=== PATIENT | female | born 1990 | race Caucasian/White ===

== ENCOUNTER 2017-03-22 17:07 | Emergency (ER) ==
[2017-03-22 17:10] VITALS: BP 125/80; TEMP 98.4; BMI 27.4
== END 2017-03-22 17:50 | disposition left against medical advice (07) ==
LOC: ED 17:07
DX: J02.9 Acute pharyngitis, unspecified (principal); R50.9 Fever, unspecified

== ENCOUNTER 2018-02-01 12:12 | Emergency (ER) ==
[2018-02-01 12:19] VITALS: BP 86/57; TEMP 97.5; BMI 22.1
[2018-02-01] MEDS: SODIUM CHLORIDE 1,000 ML IV STA (12:40)
--- NOTE | 2018-02-01 12:45 | ED.PDOC ---
General ED Provider: Dr. MORIS ORELLANA Chief Complaint: Back Pain Stated Complaint: 27 yrs old female with back pain Time Seen by Physician: 12:18 (seen with Trish ) Mode of Arrival: Walk-In Information Source: Patient Exam Limitations: No limitations Nursing and Triage Documentation Reviewed and Agree: Yes Does patient meet sepsis criteria?: No If yes, has appropriate treatment been initiated?: No System Inflammatory Response Syndrome: Not Applicable Sepsis Protocol: For patient's 13 years and over: Temp is 96.8 and below OR 101 and greater Pulse >90 BPM Resp >20/minute Acutely Altered Mental Status Are patient's symptoms suggestive of a new infection, such as: -Pneumonia -Skin, Soft Tissue -Endocarditis -UTI -Bone, Joint Infection -Implantable Device -Acute Abdominal Infection -Wound Infection -Meningitis -Blood Stream Catheter Infection -Unknown Musculoskeletal Complaint Exam - Back Pain Complaint/Exam Mechanism of Injury: Reports: No known trauma Onset/Duration: 1 day Symptoms Are: Still present Timing: Constant Episodes Lasting: Hours Initial Severity: Moderate Current Severity: Moderate Location: Reports: Discrete Character: Reports: Dull Aggravating: Reports: Movements Alleviating: Reports: Rest Associated Signs and Symptoms: Reports: Flank pain. Denies: Swelling, Redness, Bruising, Fever, Weakness, Numbness, Tingling, Abdominal pain, Bladder incontinence, Bowel incontinence, Weight loss, Pain with weight bearing TAD Risk Factors: Reports: None AAA Risk Factors: Reports: None Cauda Equina Risk Factors: Reports: None Epidural Abcess Risk Factors: Reports: None Related Surgical History: Reports: None Focal Tenderness: No Paraspinal Muscle Tenderness: No Paraspinal Muscle Spasm: No Scoliosis: No Lordosis: No Kyphosis: No SLR Test: Right Negative, Left Negative Hip Motion Testing Pain: Right Negative, Left Negative Focal Weakness: Present: None Focal Sensory Loss: Present: None Gait: Present: Normal Differential Diagnoses: Renal Colic (uti) Review of Systems - Review Of Systems Constitutional: Reports: Malaise, Weakness Eyes: Reports: No symptoms Ears, Nose, Mouth, Throat: Reports: No symptoms Respiratory: Reports: No symptoms Cardiac: Reports: No symptoms GI: Reports: No symptoms : Reports: No symptoms Musculoskeletal: Reports: Back pain Skin: Reports: No symptoms Neurological: Reports: No symptoms Endocrine: Reports: No symptoms Hematologic/Lymphatic: Reports: No symptoms All Other Systems: Reviewed and Negative Past Medical History - Past Medical History Previously Healthy: Yes Endocrine: Reports: None Cardiovascular: Reports: None Respiratory: Reports: None Hematological: Reports: None Gastrointestinal: Reports: None Genitourinary: Reports: None Neuro/Psych: Reports: None Musculoskeletal: Reports: None Cancer: Reports: None Last Menstrual Period: on - Surgical History General Surgical History: Reports: (2 months ago) - Family History Family History: Reports: Unknown - Social History Smoking Status: Current some day smoker Hx Substance Use: No Alcohol Screening: None - Immunizations Tetanus Shot up to Date: Yes Influenza Vaccine within 12 Months: No Pneumococcal Vaccine up to Date: No Physical Exam - Physical Exam Appearance: Well-appearing, No pain distress, Well-nourished Eyes: SOLITARIO, EOMI, Conjunctiva clear ENT: Ears normal, Nose normal, Oropharynx normal Respiratory: Airway patent, Breath sounds clear, Breath sounds equal, Respirations nonlabored Cardiovascular: RRR, Pulses normal, No rub, No murmur GI/: Soft, Nontender, No masses, Bowel sounds normal, No Organomegaly Musculoskeletal: Normal strength, ROM intact, No edema, No calf tenderness Skin: Warm, Dry, Normal color Neurological: Sensation intact, Motor intact, Reflexes intact, Cranial nerves intact, Alert, Oriented Psychiatric: Affect appropriate, Mood appropriate Critical Care Note - Critical Care Note Total Time (mins): 0 Course - Course Hematology/Chemistry: 02/01/18 12:50 02/01/18 12:50 Orders, Labs, Meds: Lab Review 02/01/18 02/01/18 02/01/18 12:50 12:50 12:50 WBC 14.34 H RBC 3.96 L Hgb 11.3 L Hct 34.0 L MCV 85.9 MCH 28.5 MCHC 33.2 RDW Coeff of Sunita 13.1 Plt Count 265 Immature Gran % (Auto) 0.4 Neut % (Auto) 88.5 Lymph % (Auto) 8.9 L Spencer % (Auto) 1.5 Eos % (Auto) 0.6 Baso % (Auto) 0.1 Immature Gran # (Auto) 0.1 Neut # (Auto) 12.7 H Lymph # (Auto) 1.3 Spencer # (Auto) 0.2 L Eos # (Auto) 0.1 Baso # (Auto) 0.0 Sodium 137.6 Potassium 3.81 Chloride 105.0 Carbon Dioxide 26.7 Anion Gap 9.71 BUN 12.1 Creatinine 0.62 Estimated GFR (MDRD) 116.00 BUN/Creatinine Ratio 19.51 Glucose 95.5 Lactic Acid 0.67 L Calcium 8.84 Total Bilirubin 0.31 AST 17.4 ALT 13.6 Alkaline Phosphatase 63.1 Total Protein 7.28 Albumin 4.07 Globulin 3.21 Albumin/Globulin Ratio 1.26 Procalcitonin Serum , Qual Urine Color Urine Clarity Urine pH Ur Specific [place] Urine Protein Urine Glucose (UA) Urine Ketones Urine Blood Urine Nitrite Urine Bilirubin Urine Urobilinogen Ur Leukocyte Esterase Urine Microscopic RBC Urine Microscopic WBC Ur Squamous Epith Cells Urine Bacteria Urine Mucus 02/01/18 02/01/18 02/01/18 12:50 12:50 14:30 WBC RBC Hgb Hct MCV MCH MCHC RDW Coeff of [place] Plt Count Immature Gran % (Auto) Neut % (Auto) Lymph % (Auto) Spencer % (Auto) Eos % (Auto) Baso % (Auto) Immature Gran # (Auto) Neut # (Auto) Lymph # (Auto) Spencer # (Auto) Eos # (Auto) Baso # (Auto) Sodium Potassium Chloride Carbon Dioxide Anion Gap BUN Creatinine Estimated GFR (MDRD) BUN/Creatinine Ratio Glucose Lactic Acid Calcium Total Bilirubin AST ALT Alkaline Phosphatase Total Protein Albumin Globulin Albumin/Globulin Ratio Procalcitonin < 0.05 Serum , Qual Negative Urine Color Yellow Urine Clarity Turbid Urine pH 6.5 Ur Specific [place] 1.020 Urine Protein 3+ Urine Glucose (UA) Negative Urine Ketones Trace Urine Blood 1+ Urine Nitrite Positive Urine Bilirubin Negative Urine Urobilinogen 0.2 Ur Leukocyte Esterase 3+ Urine Microscopic RBC 5-10 Urine Microscopic WBC Tntc Ur Squamous Epith Cells Not present Urine Bacteria 3+ Urine Mucus 2+ Orders Category Date Time Status EKG-(ED ONLY) Stat CARDIO 02/01/18 12:37 Completed NPO REMINDER: IMAGING ONCE CARE 02/01/18 14:52 Active ED IV/MEDIPORT/POWERPORT .ONCE EMERGENCY 02/01/18 12:37 Active BLOOD CULTURE (ED ONLY) Stat LAB 02/01/18 12:50 Received CBC W/ AUTO DIFF Stat LAB 02/01/18 12:50 Completed COMPREHENSIVE METABOLIC PANEL Stat LAB 02/01/18 12:50 Completed LACTIC ACID Stat LAB 02/01/18 12:50 Completed PROCALCITONIN Stat LAB 02/01/18 12:50 Completed SERUM Stat LAB 02/01/18 12:50 Completed URINALYSIS C & S IF INDICATED Stat LAB 02/01/18 14:30 Completed URINE CULTURE Stat LAB 02/01/18 14:30 Received URINE Stat LAB 02/01/18 12:38 Uncollected 0.9 % Sodium Chloride [Saline Flush] MEDS 02/01/18 12:37 Active 1 syr IVF PRN PRN Ceftriaxone Sodium [Rocephin] MEDS 02/01/18 15:52 Discontinued 1 gm .ROUTE .STK-MED ONE Ceftriaxone Sodium [Rocephin] 1 gm MEDS 02/01/18 14:49 Discontinued 0.9 % Sodium Chloride [Sodium Chloride] 50 ml IV ONCE Hydrocodone Bit/Acetaminophen [[place] 10-325] MEDS 02/01/18 13:18 Discontinued 1 tab PO ONCE STA Sodium Chloride 0.9% [Sodium Chloride] 1,000 ml MEDS 02/01/18 12:[address] ABD/PEL WO RENAL STONE PROT Stat RADS 02/01/18 12:[address] ABDOMEN/PELVIS W CONTRAST Stat RADS 02/01/18 14:50 Completed Medications Generic Name Dose Route Start Last Admin Trade Name Freq PRN Reason Stop Dose Admin Sodium Chloride 1 syr 02/01/18 12:37 Saline Flush IVF PRN PRN To flush IV Discontinued Medications Generic Name Dose Route Start Last Admin Trade Name Freq PRN Reason Stop Dose Admin Hydrocodone Bitart/Acetaminophen 1 tab 02/01/18 13:18 02/01/18 13:37 [place] 10-325 PO 02/01/18 13:19 1 tab ONCE STA Administration Sodium Chloride 1,000 mls @ 1,000 mls/hr 02/01/18 12:37 02/01/18 12:40 Sodium Chloride IV 02/01/18 13:36 1,000 mls/hr BOLUS STA Administration Ceftriaxone Sodium 1 gm/ 50 mls @ 75 mls/hr 02/01/18 14:49 02/01/18 16:00 Sodium Chloride IV 02/01/18 15:28 75 mls/hr ONCE STA Administration Vital Signs: Temp Pulse Resp BP Pulse Ox 02/01/18 12:15 97.5 F L 79 16 86/57 L 99 Departure - Departure Time of Disposition: 16:16 Disposition: HOME SELF-CARE Discharge Problem: Cystitis Low back pain Qualifiers: Chronicity: acute Back pain laterality: bilateral Sciatica presence: without sciatica Qualified Code(s): M54.5 - Low back pain Instructions: Acute Low Back Pain (ED), Urinary Tract Infection in Women (ED) Condition: Good Pt referred to PMD for follow-up: Yes IPMP verified?: No Additional Instructions: Please call your Family Physician as soon as possible to schedule a follow-up appointment. Allergies/Adverse Reactions: Allergies ciprofloxacin [From Cipro] Adverse Reaction (Verified 02/01/18 12:44) ciprofloxacin HCl [From Cipro] Adverse Reaction (Verified 02/01/18 12:44) codeine Adverse Reaction (Verified 02/01/18 12:44) Home Medications: Ambulatory Orders 1 [No Reported Medications] 03/22/17 Disposition Discussed With: Patient
[2018-02-01] MEDS: NORCO 10-325 PO STA (13:37)
--- NOTE | 2018-02-01 14:25 | CT ---
EXAM: CT abdomen pelvis without contrast HISTORY: Pain, flank pain, low back pain COMPARISON: None TECHNIQUE: CT abdomen pelvis performed without intravenous contrast. Coronal and sagittal reformatt ed images obtained. FINDINGS: Lung bases clear. No free air. No acute abnormalities of the bones. Heart normal in siz e. Evaluation organ parenchyma limited without contrast. Liver appears normal. Gallbladder appears normal. Pancreas appears normal. Spleen appears normal. Adrenals appear normal. No hydronephrosi s or nephrolithiasis. No calculi visualized in normal course of the ureters. Bladder unremarkable. Uterus unremarkable. Aorta normal in caliber. No lymphadenopathy or ascites. Stomach appears tracy l. No dilated loops small bowel. Appendix not visualized. Colon unremarkable. No inflammatory str anding identified in the abdomen pelvis. IMPRESSION: 1. No acute abnormality identified in the abdomen or pelvis. 2. No hydronephrosis or nephrolithiasis. 3. Nonvisualization of the appendix.
[2018-02-01] MEDS: ROCEPHIN ONE (15:57)
[2018-02-01] MEDS: ROCEPHIN 1 GM in SODIUM CHLORIDE 50 ML IV STA (16:00)
--- NOTE | 2018-02-01 16:08 | CT ---
EXAM: CT ABDOMEN AND PELVIS HISTORY: Elevated WBC count, lower back pain TECHNIQUE: CT abdomen and pelvis with intravenous contrast. Images were reconstructed using 5 mm sec tion thickness. Reformations were prepared. 75 mL Omnipaque. COMPARISON: Same day unenhanced exam. FINDINGS: Liver and spleen appear normal. No evidence of gallbladder or pancreatic pathology. Adrenal glands are normal. Normal enhancement of the kidneys with no hydronephrosis. Normal abdominal aorta. Stomach appears normal. An appendix, if present is not seen. There is no right lower quadrant infla mmatory process or fluid. General bowel gas pattern and appearance is within normal limits. Uterus appears normal. The urinary bladder appears to have mild circumferential wall thickening although th is may be accentuated by its decompressed state. There is no ascites. Ventral abdominal wall is intact without herniation. Bones reveal transitional vertebral body anatomy of the lumbosacral junction. Lung bases are clear. No pneumoperitoneum is seen. IMPRESSION: 1. Mild circumferential wall thickening of the urinary bladder cannot be excluded. Consider correla tion with labs to exclude mild cystitis. This apparent thickening may in part be related to the orga ns relatively decompressed state. Normal enhancement of the kidneys. 2. No appendix was identified. No regional inflammatory process. Normal bowel gas pattern. 3. Incidental note of transitional vertebral body anatomy at the lumbosacral junction which can be a ssociated with chronic lower back pain.
== END 2018-02-01 17:00 | disposition home or self-care (01) ==
LOC: ED 12:12
DX: M54.5 Low back pain (principal); N30.90 Cystitis, unspecified without hematuria; R53.1 Weakness; F17.210 Nicotine dependence, cigarettes, uncomplicated
CPT/HCPCS: 36415; 74176; 80053; 81001; 83605; 84145; 84703; 85025; 87040; 87086; 87186; 93005; 93010; 96360; 96361; 96368; 99284